=== PATIENT | female | born 1970 | race Caucasian/White ===

== ENCOUNTER → 2019-08-14 | Outpatient (CLI) | payer MEDICARE ==
--- NOTE | 2019-08-18 12:32 | EEG ---
DATE OF SERVICE: 08/14/2019 EEG NUMBER: [id number]. OBJECTIVE: The patient is a 49-year-old female with suspected nonepileptic seizures. DESCRIPTION: This is a digital study. Electrodes are placed according to international 10-20 system. Bipolar and referential montages are available. Activation procedures typically include hyperventilation and intermittent photic stimulation. INTERPRETATION: The waking background consists of 9-10 Hz, 50-100 microvolt activity, symmetrically distributed over parietooccipital regions and reactive to eye opening. Shortly after the patient begins hyperventilation at 11:10, she develops convulsive activity. Electroencephalogram shows muscle artifact and no epileptic abnormality. Video recording was performed. The episode lasted 5 minutes. The intermittent photic stimulation is noncontributory. Sleep is not achieved. IMPRESSION: This electroencephalogram with the patient awake only is abnormal because of the recording of a convulsive event, but this was not accompanied by any abnormal electroencephalographic activity. Findings are consistent with nonepileptic seizure. Thank you for letting us help with the patient's care. BHUMI CHAVARRIA MD DR: [email or web address]/[email or web address] JOB#: [id number] / [id number]
== END | disposition home or self-care (01) ==
LOC: SLPLAB 09:43
PROVIDERS: ATTEND Psychiatry & Neurology Neurology with Special Qualifications in Child Neurology
DX: R94.01 Abnormal electroencephalogram [EEG] (principal); G40.89 Other seizures
CPT/HCPCS: 95816